=== PATIENT | male | born 1950 | race Caucasian/White ===

== ENCOUNTER 2021-08-26 08:31 | Day surgery (SDC) | payer MEDICARE, OTHER ==
[2021-08-19 11:36] LABS: BASOPHILS % (AUTO) 0.6 % (0-1); EOSINOPHILS # (AUTO) 0.2 X10'3 (0-0.9); EOSINOPHILS % (AUTO) 2.2 % (0-6); LYMPHOCYTES # (AUTO) 1.9 X10'3 (1.1-4.8); LYMPHOCYTES % (AUTO) 26.1 % (21-51); MEAN CORPUSCULAR HEMOGLOBIN 31.8 PG (27.0-31.0); MEAN CORPUSCULAR HGB CONC 34.2 g/dL (33.0-36.5); MEAN CORPUSCULAR VOLUME 93.1 FL (78-98); MEAN PLATELET VOLUME 7.2 FL (7.4-10.4); MONOCYTES # (AUTO) 1.1 X10'3 (0-0.9); MONOCYTES % (AUTO) 14.4 % (2-12); NEUTROPHILS # (AUTO) 4.1 X10'3 (1.8-7.7); NEUTROPHILS % (AUTO) 56.7 % (42-75); PRE OP HEMATOCRIT 47.4 % (42.0-52.0); PRE OP HEMOGLOBIN 16.2 g/dL (14.0-17.9); PRE OP PLATELET COUNT 236 X10'3 (140-440); RED CELL DISTRIBUTION WIDTH 13.8 % (11.5-14.5)
[2021-08-19 11:55] LABS: ALBUMIN 3.8 G/DL (3.4-5.0); ALBUMIN/GLOBULIN RATIO 1.1 (1.1-1.5); ALKALINE PHOSPHATASE 57 IU/L (46-116); BLOOD UREA NITROGEN 16 MG/DL (7-18); CALCIUM 9.3 MG/DL (8.5-10.1); CHLORIDE 106 MMOL/L (99-107); PRE OP ALT 23 U/L (30-65); PRE OP ANION GAP 8 (8-16); PRE OP AST 20 U/L (10-37); PRE OP BILIRUB, TOTAL 0.6 MG/DL (0.0-1.0); PRE OP GLUCOSE 87 MG/DL (70-104); PRE OP POTASSIUM 3.8 MMOL/L (3.4-5.1); PRE OP SODIUM 140 MMOL/L (135-145); TOTAL CARBON DIOXIDE 26.2 MMOL/L (24-32); TOTAL PROTEIN 7.4 G/DL (6.4-8.2); eGFR > 90 ML/MIN
[2021-08-26] VITALS (9 sets, daily range): BP systolic 119–153; BP diastolic 56–82
[~2021-08-26] VITALS: Ht 188 cm; Wt 133.6 kg
[~2021-08-26 08:31] MED LIST: ALBU17AE26; HYDR50TA4 PO; LOSA100T57 PO; ceFAZolin inj. 3,000 MG in normal saline 100ml IV soln 100 ML IV ONE; famotidine 20mg tablet PO ONE; ringers solution, lacted 1,000 ML IV SCH; sevoflurane 250ml liquid IH ONE
--- NOTE | 2021-08-26 09:00 | NUR ---
URINE SAMPLE REQUESTED UPON ARRIVAL, PT STATES HE WILL TRY BUT CAN NOT URINATE AT THIS TIME
--- NOTE | 2021-08-26 09:00 | NUR ---
PATIENT PREPPED FOR SURGERY. BILATERAL DISTAL PEDAL PULSES PRESENT. SLIGHT DISCOLORATION ON RIGHT LOWER LEG/CALF, PT STATES HE HAS HAD IT FOR 10 YEARS AFTER A WOOD INJURY. BILATERAL LEGS ARE WARM AND DRY.RIGHT FOOT AND ANKLE SHAVED AND PREPPED BY LUPILLO SCHULZ
[2021-08-26] MEDS ORDERED: FENTANYL CITRATE/PF 50 MCG/1 ML VIAL ONE ×2 (12:21→12:46)
[2021-08-26] MEDS ORDERED: midazolam 1 mg/ML 2ml injection ONE (12:21)
[2021-08-26] MEDS ORDERED: cloNIDine hcl/PF 100mcg/ml inj ONE (12:26)
[2021-08-26] MEDS ORDERED: ondansetron/PF 4mg/2ml inj IV PRN (13:30)
[2021-08-26] MEDS ORDERED: ROPIVAcaine 0.2% (10 MG/5 ML) BOLUS INJECTION POPLITEAL PRN (13:30)
[2021-08-26] MEDS ORDERED: morphine 2 MG/ML inj. syringe IV PRN (13:30)
[2021-08-26] MEDS ORDERED: HYDROmorphone/PF 0.2 MG/ML SYRINGE IV PRN ×2 (13:30)
[2021-08-26] MEDS ORDERED: ROPIVAcaine 0.2%/PF PUMP/bolus 545 ML POPLITEAL SCH (13:30)
[2021-08-26] MEDS ORDERED: ringers solution, lacted 1,000 ML IV SCH (13:30)
[2021-08-26] MEDS ORDERED: ondansetron/PF 4mg/2ml inj ONE (13:37)
[2021-08-26] MEDS ORDERED: propofol inj 20 ML IV ONE (13:37)
[2021-08-26] MEDS ORDERED: LIDOcaine 1%/PF 5ML 10 MG/ML VIAL ONE (13:37)
[2021-08-26] MEDS ORDERED: rocuronium 10mg/ml inj IV ONE (13:37)
[2021-08-26] MEDS ORDERED: ROPIVAcaine 0.5% (5mg/ml) 30ml vial ONE (13:37)
[2021-08-26] MEDS ORDERED: dexamethasone sod phosphate 4mg/ml inj. ONE (13:37)
[2021-08-26] MEDS ORDERED: neostigmine methylsulfate 1 MG/ML 10ml vial ONE (13:38)
[2021-08-26] MEDS ORDERED: glycopyrrolate 0.2mg/ml inj ONE (13:38)
[2021-08-26] MEDS ORDERED: ePHEDrine 50MG/ML INJ. ONE (13:38)
[2021-08-26] MEDS ORDERED: acetaminophen 1,000mg/100ml IV 100 ML IV ONE (13:41)
[2021-08-26] MEDS ORDERED: bacitracin 15gm ointment TP ONE (13:41)
--- NOTE | 2021-08-26 14:02 | NUR ---
Received from OR via [facility] , accompanied by Anesthesiologist ELISEO and report given by Anesthesiolgist. PATIENT WITH 20G PIV IN LEFT HAND RUNNING LR AT 20. DENIES PAIN AT THIS TIME. RIGHT FOOT WITH SPLINT ON , TOES EXPOSED. + POPLITEAL PULSE PRESENT. PATIENT WITH 10L MASK ON WITH 100% SATURATIONS. Addendum: 08/26/21 at 1425 by Zbigniew George RN, RN Amended: Links added.
--- NOTE | 2021-08-26 15:02 | NUR ---
ALL DISCHARGE CRITERIA HAS BEEN MET. VSS, PAIN AT A TOLERABLE LEVEL, VOIDING AND ABLE TO SAFELY AMBULATE AND TRANSFER SELF. IV TAKEN OUT WITHOUT ANY COMPLICATIONS. ALL DISCHARGE INSTRUCTIONS COVERED WITH PATIENT AND ALL QUESTIONS ANSWERED. PATIENT TAKEN OUT VIA WHEELCHAIR TO PERSONAL VEHICLE WHERE FAMILY/FRIEND DROVE PATIENT HOME. GIVEN ALL DC INSTRUCTIONS WELL. VSS. PATIENT DENIES PAIN. CAST ELEVATOR ENCOURAGED. Addendum: 08/26/21 at 1517 by Zbigniew George RN, RN Amended: Links added.
== END 2021-08-26 15:02 | disposition home or self-care (01) ==
LOC: PAS 08:31
PROVIDERS: ATTEND Podiatrist Foot & Ankle Surgery
DX: S86.011A Strain of right Achilles tendon, initial encounter (principal); M76.61 Achilles tendinitis, right leg; I10 Essential (primary) hypertension; E66.9 Obesity, unspecified; Z68.37 Body mass index [BMI] 37.0-37.9, adult; G47.33 Obstructive sleep apnea (adult) (pediatric); G89.18 Other acute postprocedural pain; Z79.899 Other long term (current) drug therapy; Z79.82 Long term (current) use of aspirin; Z98.890 Other specified postprocedural states; Z72.89 Other problems related to lifestyle; Z20.822 Contact with and (suspected) exposure to COVID-19; X58.XXXA Exposure to other specified factors, initial encounter; Y93.89 Activity, other specified; Y92.89 Other specified places as the place of occurrence of the external cause; Y99.8 Other external cause status
CPT/HCPCS: 27650; 27691; 36415; 64446; 64447; 73600; 76000; 76942; 80053; 82948; 85025; A6222; C1713; J0131; J0690; J0735; J1100; J2250; J2405; J2704; J2710; J2795; J3010; J3490; J7030; J7120; U0003; U0005; Z7506; Z7508; Z7512; A4215; A4618; A6253; A6449; A7000